=== PATIENT | male | born 1980 | race Caucasian/White ===

== ENCOUNTER 2018-10-16 14:42 | Inpatient (IN) | payer OTHER ==
[2018-10-16 15:39] VITALS: BMI 28.0
--- NOTE | 2018-10-16 18:46 | HP ---
CIWA Score Nausea/Vomitin-Mild Nausea/No Vomiting Muscle Tremors: 3 Anxiety: 2 Agitation: 3 Paroxysmal Sweats: 2 Orientation: 0-Oriented Tacttile Disturbances: 0-None Auditory Disturbances: 1-Very Mild Visual Disturbances: 0-None Headache: 0-None Present (pt states he has been drinking all night-) CIWA-Ar Total Score: 12 - Admission Criteria OASAS Guidelines: Admission for Medically Managed Detox: Requires at least one of the followin. CIWA greater than 12 2. Seizures within the past 24 hours 3. Delirium tremens within the past 24 hours 4. Hallucinations within the past 24 hours 5. Acute intervention needed for co occurring medical disorder 6. Acute intervention needed for co occurring psychiatric disorder 7. Severe withdrawal that cannot be handled at a lower level of care (continued vomiting, continued diarrhea, abnormal vital signs) requiring intravenous medication and/or fluids 8. Patient presents the following: CIWA greater than 12 Admission Criteria Met: Admission criteria met Admission ROS [facility] [place] [facility] Chief Complaint: "I am here to detox from alcohol, marijuana, cocaine" Allergies/Adverse Reactions: Allergies Allergy/AdvReac Type Severity Reaction Status Date / Time Fish Containing Products Allergy Intermediate Verified 10/16/18 16:29 Pork/Porcine Containing Allergy Intermediate Verified 10/16/18 16:29 Products History of Present Illness: 38 yo with no medical problems and on no meds, says has been using alcohol for the last 20 years. Drinks about a pint/day- vodka. Also smokes 1 gram marijuana a day. Also uses 1 gram of cocaine- smokes crack. Here from [place]- a friend told him about this program. Pt states he is homeless - gets food stamps. Lives in [facility]. DUR- negative Utox: positive for THC and cocaine. DE: 0 - Ebola screening Have you traveled outside of the country in the last 21 days: No Have you had contact with anyone from an Ebola affected area: No Have you been sick,other than usual withdrawal symptoms: No Patient History - Patient Medical History Hx Asthma: No Hx Chronic Obstructive Pulmonary Disease (COPD): No Hx Cardiac Disorders: No Hx Hypertension: No Hx Seizures: No Hx Diabetes: No Hx Gastrointestinal Disorders: No Hx Genitourinary Disorders: No Hx Sexually Transmitted Disorders: No Hx Renal Disease (ESRD): No Hx Depression: No Hx Suicide Attempt: No Hx Schizophrenia: No - Patient Surgical History Past Surgical History: No Hx Neurologic Surgery: No Hx Cataract Extraction: No Hx Cardiac Surgery: No Hx Lung Surgery: No Hx Breast Surgery: No Hx Breast Biopsy: No Hx Abdominal Surgery: No Hx Appendectomy: No Hx Cholecystectomy: No Hx Genitourinary Surgery: No Hx Section: No Hx Orthopedic Surgery: No Anesthesia Reaction: No - PPD History Previous Implant?: Yes Documented Results: Negative w/o proof - Smoking Cessation Smoking history: Current every day smoker Have you smoked in the past 12 months: Yes Aproximately how many cigarettes per day: 20 Hx Chewing Tobacco Use: No Initiated information on smoking cessation: Yes 'Breaking Loose' booklet given: 10/16/18 - Substances Abused Alcohol Route: Oral Frequency: Daily Amount used: LIQUOR- 1 PINT, BEER- 1 SIX PACK Age of first use: 14 Date of Last Use: 10/16/18 Crack Route: Smoking Frequency: Daily Amount used: 1gm Age of first use: 22 Date of Last Use: 10/16/18 Marijuana/Hashish Route: Smoking Frequency: Daily Amount used: 1gm Age of first use: 13 Date of Last Use: 10/16/18 Family Disease History - Family Disease History Family Disease History: Other: Grandparent (alcohol) Admission Physical Exam [facility] - Vital Signs Vital Signs: Vital Signs - 24 hr 10/16/18 15:37 Temperature 96.2 F L Pulse Rate 90 Respiratory 20 Rate Blood Pressure 103/60 - Physical General Appearance: Yes: Within Normal Limits HEENTM: Yes: Within Normal Limits, EOMI Respiratory: Yes: Within Normal Limits Neck: Yes: Within Normal Limits Breast: Yes: Breast Exam Deferred Cardiology: Yes: Within Normal Limits Abdominal: Yes: Within Normal Limits Genitourinary: Yes: Within Normal Limits Back: Yes: Within Normal Limits Extremities: Yes: Within Normal Limits Neurological: Yes: Within Normal Limits Integumentary: Yes: Within Normal Limits Lymphatic: Yes: Within Normal Limits Cleared for Admission [facility] - Detox or Rehab S Level of Care: Medically Managed Detox Regimen/Protocol: Librium [facility] Breath Alcohol Content Breath Alcohol Content: 0 Urine Drug Screen - Results Drug Screen Negative: No Urine Drug Screen Results: THC-Marijuana, MARY ANN-Cocaine
[2018-10-16] MEDS ORDERED: MAGNESIUM HYDROX 2400MG/30ML ORAL SUSPENSION 30 ML CUP PO PRN (18:53)
[2018-10-16] MEDS ORDERED: IBUPROFEN 400 MG TABLET (FP) PO PRN (18:53)
[2018-10-16] MEDS ORDERED: MAGNESIUM CITRATE 300 ML BOTTLE PO PRN (18:53)
[2018-10-16] MEDS ORDERED: LOPERAMIDE HCL 2 MG CAPSULE PO PRN (18:53)
[2018-10-16] MEDS ORDERED: guaiFENesin/D-METHORPHAN HB 10 ML UNIT-DOSE CUPS PO PRN (18:53)
[2018-10-16] MEDS ORDERED: hydrOXYzine PAMOATE 50 MG CAPSULE (FP) PO PRN (18:53)
[2018-10-16] MEDS ORDERED: P-EPHED 60MG/TRIPROLIDI 2.5MG TABLET PO PRN (18:53)
[2018-10-16] MEDS ORDERED: MAG HYDROX/AL HYDROX/SIMETH 30 ML UNIT-DOSE CUP PO PRN (18:53)
[2018-10-16] MEDS ORDERED: MENTHOL/PHENOL 1 EACH UD MM PRN (18:53)
[2018-10-16] MEDS ORDERED: NICOTINE POLACRILEX 2 MG GUM BC PRN (18:53)
[2018-10-16] MEDS ORDERED: ACETAMINOPHEN 325 MG TABLET (FP) PO PRN (18:53)
[2018-10-16] MEDS ORDERED: chlordiazePOXIDE HCL 25 MG CAPSULE PO PRN (18:54)
[2018-10-16] MEDS ORDERED: MELATONIN 5 MG TABLETS PO PRN (22:00)
[2018-10-16] MEDS: THIAMINE HCL 100 MG TABLET (FP) PO SCH (23:01)
[2018-10-16] MEDS: chlordiazePOXIDE HCL 25 MG CAPSULE PO SCH (23:01)
[2018-10-17] MEDS: chlordiazePOXIDE HCL 25 MG CAPSULE PO SCH ×3 (06:13→18:33)
[2018-10-17 10:26] LABS: HEMATOCRIT 38.4 % (35.4-49); HEMOGLOBIN 13.4 GM/dL (11.7-16.9); MCH 31.9 pg (25.7-33.7); MCHC 34.8 g/dl (32.0-35.9); MEAN CELL VOLUME 91.7 fl (80-96); MEAN PLT VOLUME 9.1 fl (7.5-11.1); PLATELET COUNT 274 K/MM3 (134-434); RBC 4.19 M/mm3 (4.00-5.60); RDW 14.3 % (11.9-15.9); WHITE BLOOD COUNT 6.6 K/mm3 (4.0-10.0)
[2018-10-17] MEDS: PRENATAL VITAMINS W/ FOLIC ACID TABLET (FP) PO SCH (10:59)
[2018-10-17 11:11] LABS: ALBUMIN 2.6 g/dl (3.4-5.0); ALK PHOS 64 U/L (45-117); ANION GAP 8 MMOL/L (8-16); BILIRUBIN,TOTAL 0.3 mg/dL (0.2-1); BLOOD UREA NITROGEN 10 mg/dL (7-18); CHLORIDE 112 mmol/L (98-107); CO2 24 mmol/L (21-32); CREATININE 0.8 mg/dL (0.55-1.3); GLUCOSE,RANDOM 86 mg/dL (74-106); POTASSIUM 3.9 mmol/L (3.5-5.1); SGOT/AST 15 U/L (15-37); SGPT/ALT 25 U/L (13-61); SODIUM 144 mmol/L (136-145); TOT PROT 5.4 g/dl (6.4-8.2)
--- NOTE | 2018-10-17 15:22 | PN ---
S CIWA - CIWA Score Nausea/Vomitin-No Nausea/No Vomiting Muscle Tremors: 2 Anxiety: 3 Agitation: 3 Paroxysmal Sweats: 2 Orientation: 0-Oriented Tacttile Disturbances: 0-None Auditory Disturbances: 0-None Visual Disturbances: 0-None Headache: 0-None Present CIWA-Ar Total Score: 10 [facility] Progress Note (SOAP) Subjective: PATIENT C/O ANXIETY, SHAKES, RESTLESSNESS AND SWEATING. Objective: 10/17/18 15:20 Vital Signs Temperature 98.1 F 10/17/18 14:01 Pulse Rate 82 10/17/18 14:01 Respiratory Rate 19 10/17/18 14:01 Blood Pressure 100/50 L 10/17/18 14:01 O2 Sat by Pulse Oximetry (%) Laboratory Tests 10/17/18 10/17/18 07:00 07:00 WBC 6.6 RBC 4.19 Hgb 13.4 Hct 38.4 MCV 91.7 MCH 31.9 MCHC 34.8 RDW 14.3 Plt Count 274 MPV 9.1 Sodium 144 Potassium 3.9 Chloride 112 H Carbon Dioxide 24 Anion Gap 8 BUN 10 Creatinine 0.8 Creat Clearance w eGFR > 60 Random Glucose 86 Calcium 8.0 L Total Bilirubin 0.3 AST 15 ALT 25 Alkaline Phosphatase 64 Total Protein 5.4 L Albumin 2.6 L PE: ALERT AND ORIENTED X 3 SKIN WARM, +FACIAL MOISTURE EXT FULL ROM, +TREMORS AMB AD CARMENCITA ANXIOUS Assessment: 10/17/18 15:21 WITHDRAWAL SX Plan: CONTINUE DETOX ENCOURAGE ORAL FLUIDS CONTINUE TO MONITOR
[2018-10-17 21:28] LABS: URINE APPEARANCE CLEAR; URINE BILIRUBIN NEGATIVE (<2.0 mg/dL); URINE COLOR STRAW; URINE GLUCOSE (UA) NEGATIVE (NEGATIVE); URINE KETONE NEGATIVE (NEGATIVE); URINE LEUK ESTERASE NEGATIVE (NEGATIVE); URINE NITRITE NEGATIVE (NEGATIVE); URINE PROTEIN NEGATIVE (NEGATIVE); URINE UROBILINOGEN NEGATIVE mg/dL (0.2-1.0)
[2018-10-17] MEDS ORDERED: chlordiazePOXIDE HCL 25 MG CAPSULE PO SCH ×2 (23:00)
[2018-10-17] MEDS: THIAMINE HCL 100 MG TABLET (FP) PO SCH (23:36)
[2018-10-17] MEDS: chlordiazePOXIDE 5 MG CAPSULE PO SCH (23:37)
[2018-10-18] MEDS: chlordiazePOXIDE 5 MG CAPSULE PO SCH ×4 (06:08→22:39)
[2018-10-18] MEDS: PRENATAL VITAMINS W/ FOLIC ACID TABLET (FP) PO SCH (12:00)
--- NOTE | 2018-10-18 12:59 | PN ---
[facility] CIWA - CIWA Score Nausea/Vomitin-Mild Nausea/No Vomiting Muscle Tremors: 3 Anxiety: 2 Agitation: 1-Slight > Activity Paroxysmal Sweats: 3 Orientation: 0-Oriented Tacttile Disturbances: 0-None Auditory Disturbances: 0-None Visual Disturbances: 0-None Headache: 0-None Present CIWA-Ar Total Score: 10 [facility] Progress Note (SOAP) Subjective: SWEATS NAUSEA Objective: 10/18/18 12:57 IN BED AROUSABLE TO VERBAL STIMULI AND A & O X 3 Vital Signs Temperature 99.0 F 10/18/18 10:36 Pulse Rate 75 10/18/18 10:36 Respiratory Rate 18 10/18/18 10:36 Blood Pressure 119/67 10/18/18 10:36 O2 Sat by Pulse Oximetry (%) Laboratory Last Values WBC 6.6 K/mm3 (4.0-10.0) 10/17/18 07:00 RBC 4.19 M/mm3 (4.00-5.60) 10/17/18 07:00 Hgb 13.4 GM/dL (11.7-16.9) 10/17/18 07:00 Hct 38.4 % (35.4-49) 10/17/18 07:00 MCV 91.7 fl (80-96) 10/17/18 07:00 MCH 31.9 pg (25.7-33.7) 10/17/18 07:00 MCHC 34.8 g/dl (32.0-35.9) 10/17/18 07:00 RDW 14.3 % (11.9-15.9) 10/17/18 07:00 Plt Count 274 K/MM3 (134-434) 10/17/18 07:00 MPV 9.1 fl (7.5-11.1) 10/17/18 07:00 Sodium 144 mmol/L (136-145) 10/17/18 07:00 Potassium 3.9 mmol/L (3.5-5.1) 10/17/18 07:00 Chloride 112 mmol/L (98-107) H 10/17/18 07:00 Carbon Dioxide 24 mmol/L (21-32) 10/17/18 07:00 Anion Gap 8 MMOL/L (8-16) 10/17/18 07:00 BUN 10 mg/dL (7-18) 10/17/18 07:00 Creatinine 0.8 mg/dL (0.55-1.3) 10/17/18 07:00 Creat Clearance w eGFR > 60 (>60) 10/17/18 07:00 Random Glucose 86 mg/dL (74-106) 10/17/18 07:00 Calcium 8.0 mg/dL (8.5-10.1) L 10/17/18 07:00 Total Bilirubin 0.3 mg/dL (0.2-1) 10/17/18 07:00 AST 15 U/L (15-37) 10/17/18 07:00 ALT 25 U/L (13-61) 10/17/18 07:00 Alkaline Phosphatase 64 U/L (45-117) 10/17/18 07:00 Total Protein 5.4 g/dl (6.4-8.2) L 10/17/18 07:00 Albumin 2.6 g/dl (3.4-5.0) L 10/17/18 07:00 Urine Color Straw 10/16/18 23:20 Urine Appearance Clear 10/16/18 23:20 Urine pH 6.0 (5.0-8.0) 10/16/18 23:20 Ur Specific [place] 1.005 (1.010-1.035) L 10/16/18 23:20 Urine Protein Negative (NEGATIVE) 10/16/18 23:20 Urine Glucose (UA) Negative (NEGATIVE) 10/16/18 23:20 Urine Ketones Negative (NEGATIVE) 10/16/18 23:20 Urine Blood Negative (NEGATIVE) 10/16/18 23:20 Urine Nitrite Negative (NEGATIVE) 10/16/18 23:20 Urine Bilirubin Negative (<2.0 mg/dL) 10/16/18 23:20 Urine Urobilinogen Negative mg/dL (0.2-1.0) 10/16/18 23:20 Ur Leukocyte Esterase Negative (NEGATIVE) 10/16/18 23:20 RPR Titer Nonreactive (NONREACTIVE) 10/17/18 07:00 LABS NOTED Assessment: 10/18/18 12:58 WITHDRAWAL SX Plan: CONTINUE DETOX
[2018-10-18] MEDS: THIAMINE HCL 100 MG TABLET (FP) PO SCH (22:39)
[2018-10-19] MEDS: chlordiazePOXIDE 5 MG CAPSULE PO SCH ×2 (05:26→10:35)
[2018-10-19 10:32] VITALS: BP 111/73; PULSE 67; TEMP 97.3
[2018-10-19] MEDS: PRENATAL VITAMINS W/ FOLIC ACID TABLET (FP) PO SCH (10:35)
--- NOTE | 2018-10-19 14:14 | DS ---
[facility] Detox Discharge Summary Admission Date: 10/16/18 Discharge Date: 10/19/18 - History Present History: Alcohol Dependence Additional Comments: 38 years old male admitted on 10/16/18 for alcohol withdrawal sx feeling better today after lunch wants to return to friend[facility] in [place] "they do not drinking alcohol" patient has support network toward sobriety in [place] patient prefers to begin rehab today patient agrees to follow up with [facility] services for medical mental and addiction issues - Physical Exam Results Vital Signs: Vital Signs Temperature 97.3 F L 10/19/18 06:00 Pulse Rate 67 10/19/18 06:00 Respiratory Rate 18 10/19/18 06:00 Blood Pressure 111/73 10/19/18 06:00 O2 Sat by Pulse Oximetry (%) Pertinent Admission Physical Exam Findings: alcohol withdrawal sx Vital Signs Temperature 97.3 F L 10/19/18 06:00 Pulse Rate 67 10/19/18 06:00 Respiratory Rate 18 10/19/18 06:00 Blood Pressure 111/73 10/19/18 06:00 O2 Sat by Pulse Oximetry (%) Laboratory Last Values WBC 6.6 K/mm3 (4.0-10.0) 10/17/18 07:00 RBC 4.19 M/mm3 (4.00-5.60) 10/17/18 07:00 Hgb 13.4 GM/dL (11.7-16.9) 10/17/18 07:00 Hct 38.4 % (35.4-49) 10/17/18 07:00 MCV 91.7 fl (80-96) 10/17/18 07:00 MCH 31.9 pg (25.7-33.7) 10/17/18 07:00 MCHC 34.8 g/dl (32.0-35.9) 10/17/18 07:00 RDW 14.3 % (11.9-15.9) 10/17/18 07:00 Plt Count 274 K/MM3 (134-434) 10/17/18 07:00 MPV 9.1 fl (7.5-11.1) 10/17/18 07:00 Sodium 144 mmol/L (136-145) 10/17/18 07:00 Potassium 3.9 mmol/L (3.5-5.1) 10/17/18 07:00 Chloride 112 mmol/L (98-107) H 10/17/18 07:00 Carbon Dioxide 24 mmol/L (21-32) 10/17/18 07:00 Anion Gap 8 MMOL/L (8-16) 10/17/18 07:00 BUN 10 mg/dL (7-18) 10/17/18 07:00 Creatinine 0.8 mg/dL (0.55-1.3) 10/17/18 07:00 Creat Clearance w eGFR > 60 (>60) 10/17/18 07:00 Random Glucose 86 mg/dL (74-106) 10/17/18 07:00 Calcium 8.0 mg/dL (8.5-10.1) L 10/17/18 07:00 Total Bilirubin 0.3 mg/dL (0.2-1) 10/17/18 07:00 AST 15 U/L (15-37) 10/17/18 07:00 ALT 25 U/L (13-61) 10/17/18 07:00 Alkaline Phosphatase 64 U/L (45-117) 10/17/18 07:00 Total Protein 5.4 g/dl (6.4-8.2) L 10/17/18 07:00 Albumin 2.6 g/dl (3.4-5.0) L 10/17/18 07:00 Urine Color Straw 10/16/18 23:20 Urine Appearance Clear 10/16/18 23:20 Urine pH 6.0 (5.0-8.0) 10/16/18 23:20 Ur Specific [place] 1.005 (1.010-1.035) L 10/16/18 23:20 Urine Protein Negative (NEGATIVE) 10/16/18 23:20 Urine Glucose (UA) Negative (NEGATIVE) 10/16/18 23:20 Urine Ketones Negative (NEGATIVE) 10/16/18 23:20 Urine Blood Negative (NEGATIVE) 10/16/18 23:20 Urine Nitrite Negative (NEGATIVE) 10/16/18 23:20 Urine Bilirubin Negative (<2.0 mg/dL) 10/16/18 23:20 Urine Urobilinogen Negative mg/dL (0.2-1.0) 10/16/18 23:20 Ur Leukocyte Esterase Negative (NEGATIVE) 10/16/18 23:20 RPR Titer Nonreactive (NONREACTIVE) 10/17/18 07:00 lab noted - Treatment Hospital Course: Detox Protocol Followed, Detoxed Safely, Responded well, Discharged Condition Good, Rehab Referral Accepted Patient has Accepted a Rehab Referral to: [facility] - Medication Discharge Medications: Ambulatory Orders NK [No Known Home Medication] 10/16/18 - Diagnosis (1) Alcohol dependence with uncomplicated withdrawal Current Visit: Yes Status: Acute (2) Nicotine addiction Current Visit: Yes Status: Acute Qualifiers: Nicotine product type: cigarettes Substance use status: in withdrawal Qualified Code(s): F17.213 - Nicotine dependence, cigarettes, with withdrawal - AMA Did Patient Leave Against Medical Advice: No
[2018-10-19] MEDS ORDERED: chlordiazePOXIDE 5 MG CAPSULE PO SCH (23:00)
== END 2018-10-19 12:05 | disposition home or self-care (01) | DRG 774 ==
LOC: YASAS 14:42 → Y6N 20:01
PROC: HZ2ZZZZ Detoxification Services for Substance Abuse Treatment (ICD-10-PCS; principal; 2018-10-16)
DX: F10.230 Alcohol dependence with withdrawal, uncomplicated (principal); F14.20 Cocaine dependence, uncomplicated; F12.20 Cannabis dependence, uncomplicated; F17.213 Nicotine dependence, cigarettes, with withdrawal; Z59.0 Homelessness
CPT/HCPCS: 36415; 80053; 81003; 85027; 86593

== ENCOUNTER 2019-05-07 15:43 | Inpatient (IN) | payer OTHER ==
[2019-05-07 21:37] VITALS: BMI 31.9
[2019-05-07] MEDS ORDERED: MELATONIN 5 MG TABLETS PO PRN (22:00)
--- NOTE | 2019-05-07 22:19 | HP ---
CIWA Score - Admission Criteria OASAS Guidelines: Admission for Medically Managed Detox: Requires at least one of the followin. CIWA greater than 12 2. Seizures within the past 24 hours 3. Delirium tremens within the past 24 hours 4. Hallucinations within the past 24 hours 5. Acute intervention needed for co occurring medical disorder 6. Acute intervention needed for co occurring psychiatric disorder 7. Severe withdrawal that cannot be handled at a lower level of care (continued vomiting, continued diarrhea, abnormal vital signs) requiring intravenous medication and/or fluids 8. Admission ROS [facility] Chief Complaint: seeking rehab for hx/o alcoholism Allergies/Adverse Reactions: Allergies Allergy/AdvReac Type Severity Reaction Status Date / Time Fish Containing Products Allergy Intermediate Verified 10/16/18 16:29 Pork/Porcine Containing Allergy Intermediate Verified 10/16/18 16:29 Products History of Present Illness: 39 y.o. male with alcoholism here for rehab. he is self referred as he is seeking inpatient rehab do to worsening cravings. He reports his last drink to be 2 months ago. Due to current living situation, living in a intermediate and being exposed to constant substance abuse he fears relapsing as he is on parole. Reports longest clean time 22 months while in a residential program. He denies hx/o seizures,dt's, si/hi/avh, blackouts. Homeless, unemployed, parole Exam Limitations: No Limitations - Ebola screening Have you traveled outside of the country in the last 21 days: No (N) Have you had contact with anyone from an Ebola affected area: No Do you have a fever: No - Review of Systems Constitutional: No Symptoms Reported EENT: reports: No Symptoms Reported Respiratory: reports: No Symptoms reported Cardiac: reports: No Symptoms Reported GI: reports: No Symptoms Reported : reports: No Symptoms Reported Musculoskeletal: reports: No Symptoms Reported Integumentary: reports: No Symptoms Reported Neuro: reports: No Symptoms reported Endocrine: reports: No Symptoms Reported Hematology: reports: No Symptoms Reported Psychiatric: reports: Orientated x3 Other Systems: Reviewed and Negative Patient History - Patient Medical History Hx Anemia: No Hx Asthma: No Hx Chronic Obstructive Pulmonary Disease (COPD): No Hx Cancer: No Hx Cardiac Disorders: No Hx Congestive Heart Failure: No Hx Hypertension: No Hx Hypercholesterolemia: No Hx Pacemaker: No HX Cerebrovascular Accident: No Hx Seizures: No Hx Dementia: No Hx Diabetes: No Hx Gastrointestinal Disorders: No Hx Liver Disease: No Hx Genitourinary Disorders: No Hx Sexually Transmitted Disorders: No Hx Renal Disease (ESRD): No Hx Thyroid Disease: No Hx Human Immunodeficiency Virus (HIV): No Hx Hepatitis C: No Hx Depression: No Hx Suicide Attempt: No Hx Bipolar Disorder: No Hx Schizophrenia: No - Patient Surgical History Past Surgical History: No Hx Neurologic Surgery: No Hx Cataract Extraction: No Hx Cardiac Surgery: No Hx Lung Surgery: No Hx Breast Surgery: No Hx Breast Biopsy: No Hx Abdominal Surgery: No Hx Appendectomy: No Hx Cholecystectomy: No Hx Genitourinary Surgery: No Hx Section: No Hx Orthopedic Surgery: No Anesthesia Reaction: No - PPD History Previous Implant?: Yes Documented Results: Negative w/proof Implanted On Prior [facility] Admission?: Yes Date: 10/18/18 Results: 0mm PPD to be Administered?: No - Smoking Cessation Smoking history: Current every day smoker Have you smoked in the past 12 months: Yes Aproximately how many cigarettes per day: 20 Cigars Per Day: 0 Hx Chewing Tobacco Use: No Initiated information on smoking cessation: Yes 'Breaking Loose' booklet given: 05/07/19 - Substance & Tx. History Hx Alcohol Use: Yes Hx Substance Use: Yes Substance Use Type: Alcohol Hx Substance Use Treatment: Yes ([facility]) - Substances abused None Other (specify): alcohol Substance route: Oral Frequency: Daily Amount used: 1pint of vodka and 1 six pack of beer/day Age of first use: 12 Date of last use: 03/07/19 K2/Spice Substance route: Smoking Frequency: 3-6 times per week Amount used: 2 joints-3x a week Age of first use: 35 Date of last use: 03/06/19 Family Disease History - Family Disease History Family Disease History: Other: Grandparent (alcohol) Admission Physical Exam [facility] - Vital Signs Vital Signs: Vital Signs - 24 hr 05/07/19 21:31 Temperature 98.8 F Pulse Rate 69 Respiratory 18 Rate Blood Pressure 119/69 - Physical General Appearance: Yes: No Apparent Distress, Appropriately Dressed HEENTM: Yes: EOMI, Normocephalic, Normal Voice, ZAHRAA, Pharynx Normal Respiratory: Yes: Chest Non-Tender, Lungs Clear, Normal Breath Sounds, No Respiratory Distress, No Accessory Muscle Use Neck: Yes: No masses,lesions,Nodules, Supple, Trachea in good position Breast: Yes: Breast Exam Deferred Cardiology: Yes: Regular Rhythm, Regular Rate, S1, S2 Abdominal: Yes: Normal Bowel Sounds, Non Tender, Soft Genitourinary: Yes: Within Normal Limits Back: Yes: Normal Inspection Musculoskeletal: Yes: full range of Motion, Gait Steady Extremities: Yes: Normal Capillary Refill, Normal Range of Motion, Non-Tender Neurological: Yes: Fully Oriented, Alert, Motor Strength 5/5 Integumentary: Yes: Dry, Warm Lymphatic: Yes: Within Normal Limits - Diagnostic (1) Uncomplicated alcohol dependence Current Visit: Yes Status: Acute (2) Homeless Current Visit: Yes Status: Suspected (3) Nicotine addiction Current Visit: Yes Status: Chronic Qualifiers: Nicotine product type: cigarettes Substance use status: uncomplicated Qualified Code(s): F17.210 - Nicotine dependence, cigarettes, uncomplicated Cleared for Admission [facility] - Detox or Rehab Detox Regimen/Protocol: Not Applicable Claeared for Rehab Admission: Yes Breathalyzer - Breathalyzer Breathalyzer: 0 Urine Drug Screen - Test Device Lot number: [id number] Expiration date: 07/17/20 - Control Is test valid?: Yes - Results Drug screen NEGATIVE: Yes Inpatient Rehab Admission - Rehab Decision to Admit Inpatient rehab admission?: Yes - Initial Determination Are CD services needed?: Yes Free of communicable disease: Yes Not in need of hospitalization: Yes - Rehab Admission Criteria Previous failed treatment: Yes Poor recovery environment: Yes Comorbidities: Yes Lacks judgement: No Patient is meeting Inpatient Rehab admission criteria:: Yes
[2019-05-07] MEDS ORDERED: MAG HYDROX/AL HYDROX/SIMETH 30 ML UNIT-DOSE CUP PO PRN (22:24)
[2019-05-07] MEDS ORDERED: MAGNESIUM HYDROX 2400MG/30ML ORAL SUSPENSION 30 ML CUP PO PRN (22:24)
[2019-05-07] MEDS ORDERED: guaiFENesin 200 MG/10 ML 10 ML UNIT-DOSE CUPS PO PRN (22:24)
[2019-05-07] MEDS ORDERED: IBUPROFEN 400 MG TABLET (FP) PO PRN (22:24)
[2019-05-07] MEDS ORDERED: ACETAMINOPHEN 325 MG TABLET (FP) PO PRN (22:24)
[2019-05-07] MEDS ORDERED: hydrOXYzine PAMOATE 50 MG CAPSULE (FP) PO PRN (22:24)
[2019-05-07] MEDS ORDERED: NICOTINE POLACRILEX 2 MG GUM BC PRN (22:24)
[2019-05-07] MEDS ORDERED: MENTHOL/PHENOL 1 EACH UD MM PRN (22:24)
[2019-05-07] MEDS ORDERED: MAGNESIUM CITRATE 300 ML BOTTLE PO PRN (22:24)
[2019-05-07] MEDS ORDERED: LOPERAMIDE HCL 2 MG CAPSULE PO PRN (22:24)
[2019-05-07] MEDS ORDERED: P-EPHED 60MG/TRIPROLIDI 2.5MG TABLET PO PRN (22:24)
[2019-05-08] MEDS: NICOTINE 21 MG/24 HOURS TOPICAL PATCH TD SCH (10:42)
[2019-05-08] MEDS: PRENATAL VITAMINS W/ FOLIC ACID TABLET (FP) PO SCH (10:42)
[2019-05-08 11:51] LABS: HEMATOCRIT 38.7 % (35.4-49); HEMOGLOBIN 13.4 GM/dL (11.7-16.9); MCH 31.8 pg (25.7-33.7); MCHC 34.7 g/dl (32.0-35.9); MEAN CELL VOLUME 91.8 fl (80-96); MEAN PLT VOLUME 9.8 fl (7.5-11.1); PLATELET COUNT 216 K/MM3 (134-434); RBC 4.21 M/mm3 (4.00-5.60); RDW 13.1 % (11.9-15.9); WHITE BLOOD COUNT 6.7 K/mm3 (4.0-10.0)
[2019-05-08 12:07] LABS: ALBUMIN 3.6 g/dl (3.4-5.0); BILIRUBIN,TOTAL 0.2 mg/dL (0.2-1); BLOOD UREA NITROGEN 7.5 mg/dL (7-18); CALCIUM 8.3 mg/dL (8.5-10.1); CREATININE 0.8 mg/dL (0.55-1.3); POTASSIUM 3.9 mmol/L (3.5-5.1); TOT PROT 6.5 g/dl (6.4-8.2)
--- NOTE | 2019-05-08 14:48 | CONSULT ---
[facility] Psychiatric Consult - Data Date of interview: 05/08/19 Admission source: [facility] Identifying data: Mr King is a 39 years old single male, unemployed with no source income, homeless seeking rehab treatment for alcohol and synthetic cannabis Substance Abuse History: Reports history ofalcohol and k2 use. refer to addiction counselor's summary for further information Medical History: Unremarkable. Smokes cigarettes 1 ppd Psychiatric History: Reports that his first psyciatric contact was in 2002 when he was admitted to [facility] for hearing voices and paranoia. He was diagnosed with Schizophrenia and started on psychotropic medications. Denies any subsequent psychiatric hospitalization. Reports suboptimal adherence to OPD care and medications. Reports that he received [facility] for 3 months following his discharge from [facility]. Reports that he was in [facility] for 2 months and he was released on 05/06/19. While there, he saw a psychiatrist and he was administered an injection of Invega Sustena on 04/13/19. He was referred to [facility] after his release. [facility] referred him to this facility for inpatient rehab. Denies previous suicidal ideations. At present, denies experiencing psychotic or depressive symptoms, S/H ideations. Physical/Sexual Abuse/Trauma History: Denies history of emotional, physical or sexual abuse as well as DV relationship. No service Additional Comment: Reports history of 5 previous arrests including 2 felony convictions. Reports being on parole till May 2020 Mental Status Exam - Mental Status Exam Alert and Oriented to: Time, Place, Person Cognitive Function: Fair Patient Appearance: Disheveled Mood: Hopeful, Euthymic Patient Behavior: Cooperative Speech Pattern: Clear Voice Loudness: Normal Thought Process: Intact, Goal Oriented Thought Disorder: Not Present Hallucinations: Denies Suicidal Ideation: Denies Insight/Judgement: Fair Sleep: Well Appetite: Good Muscle strength/Tone: Normal Gait/Station: Normal Psychiatric Findings - Problem List ([place] 1, 2,3) (1) Schizophrenia Current Visit: Yes Status: Chronic (2) Alcohol dependence Current Visit: Yes Status: Acute (3) Cocaine dependence Current Visit: No Status: Acute (4) Cannabis dependence Current Visit: Yes Status: Acute (5) Nicotine dependence Current Visit: Yes Status: Chronic - Initial Treatment Plan Initial Treatment Plan: Veracity of patient claims that he received injection of Invega Sustena need to be ascertain by contacting [facility]. If he really received that injection on 04/13/19, he is due for next injection on Saturday. That medication is not formulary in this facilty pharmacy. [facility] should be the one to provide that medication. Patient is unwilling to accept ay alternative like Risperdal oral.
[2019-05-08] MEDS: THIAMINE HCL 100 MG TABLET (FP) PO SCH (22:20)
[2019-05-09] MEDS: NICOTINE 21 MG/24 HOURS TOPICAL PATCH TD SCH (10:21)
[2019-05-09] MEDS: PRENATAL VITAMINS W/ FOLIC ACID TABLET (FP) PO SCH (10:21)
[2019-05-09] MEDS: THIAMINE HCL 100 MG TABLET (FP) PO SCH (22:00)
[2019-05-10 07:01] VITALS: BP 104/68; PULSE 63; TEMP 98.2
[2019-05-10] MEDS: PRENATAL VITAMINS W/ FOLIC ACID TABLET (FP) PO SCH (10:18)
[2019-05-10] MEDS: NICOTINE 21 MG/24 HOURS TOPICAL PATCH TD SCH (10:18)
--- NOTE | 2019-05-10 11:31 | PN ---
[facility] Progress Note Note: patient did not to complete treatment,stated he is feeling well,would like to leave to go and stay with his friend,and follow up with his program, all attempts to convince patient to stay with no avail,high risks of relapsing explained,patient understood, seen by counselor,patient signed release ama Vital Signs Temperature 98.2 F 05/10/19 07:00 Pulse Rate 63 05/10/19 07:00 Respiratory Rate 18 05/10/19 07:00 Blood Pressure 104/68 05/10/19 07:00 O2 Sat by Pulse Oximetry (%) patient left the unit in good and stable condition
--- NOTE | 2019-05-10 11:33 | PN ---
S Progress Note Note: this note is for discharge note for rehab date of admission 05/07/19 date of discharge 05/10/19 diagnosis alcohol dependence nicotine dependence cocaine dependence schizophrenia patient signed release ama Vital Signs Temperature 98.2 F 05/10/19 07:00 Pulse Rate 63 05/10/19 07:00 Respiratory Rate 18 05/10/19 07:00 Blood Pressure 104/68 05/10/19 07:00 O2 Sat by Pulse Oximetry (%) left the unit in good and stable condition
== END 2019-05-10 10:55 | disposition left against medical advice (07) | DRG 770 ==
LOC: YASAS 15:43 → Y3W 23:03
PROVIDERS: ADMIT Neuromusculoskeletal Medicine & OMM; ATTEND Neuromusculoskeletal Medicine & OMM
PROC: HZ42ZZZ Group Counseling for Substance Abuse Treatment, Cognitive-Behavioral (ICD-10-PCS; principal; 2019-05-07)
DX: F10.20 Alcohol dependence, uncomplicated (principal); F14.20 Cocaine dependence, uncomplicated; F12.20 Cannabis dependence, uncomplicated; F17.210 Nicotine dependence, cigarettes, uncomplicated; F20.9 Schizophrenia, unspecified; Z59.0 Homelessness
CPT/HCPCS: 36415; 80053; 85027; 86593